=== PATIENT | female | born 1985 | race Caucasian/White ===

== ENCOUNTER 2024-06-09 01:11 | Day surgery (SDC) | payer OTHER, SELFPAY ==
[2024-06-02 09:31] VITALS: BMI 23.3
--- NOTE | 2024-06-02 09:38 | PC.NURSE ---
Report to the Outpatient Waiting Room, entrance under the green pavilion located off [facility], at time _1130_ on date _[id number]_. Planned Procedure Time: _130pm_.? Time changes happen often and if your time is changed the preop area will call you the afternoon before. - You and your visitor will be asked to self-screen and do not enter if you have any COVID symptoms. Please call surgeon if you need to reschedule. - A mask is optional within the hospital at this time. Patients may have clear liquids (water, carbonated beverages, clear teas, apple juice) until 3 hours prior to surgery with a maximum of 20 ounces. - No food from midnight until time of surgery and no smoking. This includes no chewing gum, candy or mints. Take only the following medications with a SIP of water on the morning of surgery: __Duloxetine, Escitalopram and Levothyroxine__ DO NOT STOP ANY OF YOUR OTHER PRESCRIPTION MEDICATIONS PRIOR TO SURGERY EXCEPT THE FOLLOWING Medications to discontinue per physician ____None Please no make-up, nail syriac, hairspray, perfume, deodorant, or body powder the day of surgery.? No jewelry (including any body piercings) or valuables the day of surgery, leave them at home.? Please take a shower or bath the night before, or the morning of, surgery with an antibacterial soap.? Wear comfortable, loose fitting clothing. - Jewelry must be removed prior to entering the operating room.? Rings and piercings that are not removed may be cut off. - The hospital will not accept responsibility for valuables.? - Please leave all valuables, including medications, at home the day of surgery. If you are going home after surgery, a licensed horse and wagon driver must drive you home.? - NO public transportation without another adult if you receive anesthesia. - We recommend that an adult stay with you for 24 hours following discharge. - We also recommend that you do not drive, make important decision, drink alcoholic beverages, or take any drugs that were not prescribed by your health care provider for at least 24 hours after your discharge time. Follow any additional instructions given to you from your surgeon. Telephone instructions given to _Jelena_and asked if any additional questions and then verbalized understanding. Patient advised to call surgeon office or pre surgery nurse liaison [phone] if any additional questions.
[2024-06-09] VITALS (8 sets, daily range): BP systolic 126–147; BP diastolic 80–101; PULSE 76–97; RESP 12–17; TEMP 36.3–36.8; O2SAT 97–100
[2024-06-09 12:03] LABS: Urine Cotinine NEGATIVE
[2024-06-09 12:30] LABS: BEDSIDEPREGUCG Negative (Negative)
[2024-06-09] MEDS: LACTATED RINGERS 1,000 ML 30 ML IV CONT ×2 (12:50→16:26)
--- NOTE | 2024-06-09 12:57 | WPDHPUPDATE1 ---
History and Physical Update Update Date/Time: 06/09/24 12:57 History and Physical has been reviewed, including an updated exam of the patient. There are NO changes in the patient's condition. Risks, benefits, and alternatives have been discussed and questions answered. Patient agrees to proceed with procedure.
--- NOTE | 2024-06-09 13:04 | P.PNAN_ITS ---
Anes - Initial Pre Proc Eval Procedure: Operation Date: 06/09/24 13:30 Proposed Procedures p Bilateral Breast Augmentation with Galaflex - Jaylan Lester MD s Bilateral Breast Mastopexy - Jaylan Lester MD Date/Time: 06/09/24 13:04 Surgeon: Jaylan Lester MD Pre Op Diagnosis: Bilateral ptosis, micromastia Pre Op Diagnosis: breast ptsois , micromastia Patient Data Age: 39 Gender: F Height: 1.75 m Weight: 72.3 kg Last Vital Signs Temp 36.8 C 06/09/24 11:49 Pulse 79 06/09/24 11:49 Resp 16 06/09/24 11:49 BP 126/80 06/09/24 11:49 Pulse Ox 100 06/09/24 11:49 O2 Del Method Room Air 06/09/24 11:49 Allergies Allergy/AdvReac Type Severity Reaction Status Date / Time No Known Allergies Allergy Verified 06/02/24 14:24 Home Medications ?Medication ?Instructions ?Recorded ?Confirmed ?Type escitalopram oxalate 10 mg tablet 10 mg PO DAILY #30 tabs 05/09/19 06/09/24 Rx aripiprazole 10 mg tablet 10 mg PO HS 06/02/24 06/02/24 History duloxetine 60 mg capsule,delayed 60 mg PO DAILY 06/02/24 06/09/24 History release levothyroxine 125 mcg tablet 125 mcg PO DAILY 06/02/24 06/02/24 History topiramate 25 mg tablet 25 mg PO HS 06/02/24 06/02/24 History ubrogepant 100 mg tablet (Ubrelvy) 100 mg PO BID PRN Migraine Headache 06/02/24 06/02/24 History Laboratory Tests 06/09/24 06/09/24 11:46 12:28 POC Urine HCG, Qual Negative (Negative) Cotinine Negative Patient hx anesthesia problems: none Family hx anesthesia problems: none Results Review: All pre-operative results and documents have been reviewed as part of the pre- operative evaluation. [facility] Family History Family History Father Family history of gout Family history of cardiovascular disease, Onset Age: 62 Patient's father is , Onset Age: 68 Mother Hypertension Family history of arthritis Sibling Family history of obesity Social History Social History Smoking status: Never smoker Second hand tobacco smoke exposure: No Alcohol intake: current Substance use type: marijuana Other substance usage details: Occasionally Living arrangements: with family Spiritual care concerns: No Anes - Eval Final PreProcedure Day of Procedure 06/09/24 13:04 Patient weight: normal Heart: regular rate and rhythm Lungs: clear to auscultation Airway: Mallampati scale class II Neurological: alert and oriented Last oral intake: >/= 8 hours ASA classification: II Emergent: no Anesthesia type and monitoring: general LMA and standard monitoring Results Review: All pre-operative results and documents have been reviewed as part of the pre- operative evaluation. Informed Consent: The patient's anesthetic plan and its attendant risks and benefits were discussed with the patient/family/POA. Questions were solicited and answers provided to the satisfaction of the patient/family/POA.
--- NOTE | 2024-06-09 13:05 | P.OP_ITS ---
Procedure Note - Detailed Date of Procedure 06/09/24 Pre-op Diagnosis breast ptsois , micromastia Post-op Diagnosis Same Procedure Performed Bilateral augmentation mastopexy Surgeon Jaylan Lester MD Anesthesia General Findings Bilateral Grace Cassidy SoftTouch 490cc Right REF# [id number] SN [id number] Left REF# [id number] SN [id number] Description of Procedure She is here today for bilateral breast augmentation mastopexy. Previously and again today the risks, benefits, alternatives were discussed in extensive detail. I wanted her to be very realistic about the risks involved as well as expectations. We discussed aftercare and what to monitor for. Made sure answered all of her questions to her satisfaction today and consent was obtained. Marked in the preoperative holding area with their verification. The patient was taken to the operating room placed supine on the operating table. Anesthesia was provided by anesthesiology. A surgical time-out was taken. We cleansed the skin and 1% lidocaine and 0.25% Marcaine with epinephrine was used anesthetize as a field block. She was prepped and draped in a standard sterile fashion. Tegaderm nipple Fields were placed. A 15 blade used to make an incision just superior to the inframammary fold leaving a cusp of de-epithelized tissue at the t junction. Dissection was continued until the chest wall as identified. I elevated a subfascial pocket in the appropriate dimensions based on our preop erative planning for the implant. I then copiously irrigated with saline solution and verified a strict hemostasis. Next the use a triple antibiotic and Betadine containing solution to irrigate the pocket. I washed my gloves with the triple antibiotic and Betadine solution. We washed the implant immediately upon opening it with this solution and only opened it when we needed it. I used implant funnel and no-touch technique. The implant was introduced into the pocket using the funnel. Having verified positioning of the implant this was closed using 2-0 PDS. I tailor tacked the breast into position. Placed her in a sitting position. Verified the nipple-areolar location based on preoperative planning as well as intraoperative observations and measurements in full agreement. She was placed supine. I de-epithelialized the pedicle. I then removed the inferior central portion of the breast need making sure the implant was well protected. I elevated medial and lateral tissue flaps as well for planned closure. Galaflex was soaking in a betadine solution on the back table. It was trimmed and sutured into place with 2-0 Vicryl. I closed along the IMF with 2-0 Stratafix. Along the vertical with 2-0 PDS. I closed around the areola with 3-0 strata fix. 3-0 Monocryl along the vertical. 3-0 Stratafix along the IMF. I finally closed everything with running subcuticular 4-0 Monocryl and tissue glue. Fluffs and surgical bra were placed. Estimated Blood Loss 50 Drains No Packing No Pathology None sent Complications No immediate complications Condition Stable Disposition PACU
[2024-06-09] MEDS: ceFAZolin 2 GM/D5W 50 ML 2 GM/50 ML BAG IVPB (13:19)
[2024-06-09] MEDS: LACTATED RINGERS IRRIG 1,000 ML, LIDOCAINE 1% LOCAL INJ 50 ML, EPINEPHrine HCL INJ 1 MG... INFILTRATE (13:41)
[2024-06-09] MEDS: NACL 0.9% IRRIG POUR BOTTLE 900 ML, GENTAMICIN SULFATE INJ 160 MG, ceFAZolin 2 GM, POVI... IRRIGATION (13:41)
[2024-06-09] MEDS: TRANEXAMIC ACID 1,000 MG/10 ML AMPUL 1000 MG IV PUSH (13:49)
[2024-06-09] MEDS: oxyCODONE HCL (*CRX) 5 MG TAB IR PO (17:46)
== END 2024-06-09 18:18 | disposition home or self-care (01) ==
PROVIDERS: Anesthesiology; PCP Physician Assistant; Visit Provider Surgery Plastic and Reconstructive Surgery
PROC: (CPT 19325; principal; 2024-06-09 13:30)
PROC: (CPT 19316; 2024-06-09 13:30)
DX: Z41.1 Encounter for cosmetic surgery (principal); N64.82 Hypoplasia of breast; N64.81 Ptosis of breast
CPT/HCPCS: 19325; 19316; 80307; A9270; J0171; J0690; J1100; J1171; J1580; J2003; J2004; J2250; J2405; J2704; J3010; J7030; J7120